=== PATIENT | female | born 1975 ===

== ENCOUNTER 2017-09-26 16:03 | Outpatient (CLI) | payer BC ==
--- NOTE | 2017-09-27 11:27 | Mammography Report ---
BILATERAL DIGITAL SCREENING MAMMOGRAM WITH CAD:09/26/17 CLINICAL: Baseline screening. No comparison. Status post bilateral reduction mammoplasty in 1999. FINDINGS: The breasts are mostly fatty with a few bilateral scatter fibroglandular densities. Left asymmetries on the MLO view require additional imaging.No architectural distortion or suspicious calcifications. The right breast is negative. IMPRESSION: Left asymmetries requiring further workup. BI-RADS CATEGORY: 0 -- Needs Additional Imaging RECOMMENDATION: Recall for left exaggerated CC and spot compression MLO views and left breast ultrasound if needed. ACR BI-RADS MAMMOGRAPHIC CODES: 0 = Needs additional imaging evaluation; 1 = Negative; 2 = Benign; 3 = Probably benign; 4 = Suspicious; 5 = Malignant; 6 = Known biopsy-proven malignancy COMMENT: 1. Dense breast tissue, i.e., adenosis, fibrocystic changes, etc., may obscure an underlying neoplasm. 2. Approximately 10% of cancers are not detected with mammography. 3. A negative mammography report should not delay biopsy if a clinically suspicious mass is present.
== END 2017-09-26 16:04 | disposition home or self-care (01) ==
LOC: SPVWC 16:03
PROVIDERS: ATTEND Obstetrics & Gynecology
DX: Z12.31 Encounter for screening mammogram for malignant neoplasm of breast (principal)
CPT/HCPCS: 77067

== ENCOUNTER 2017-10-06 10:15 | Outpatient (CLI) | payer BC ==
--- NOTE | 2017-10-06 14:34 | Ultrasound Report ---
LEFT DIGITAL DIAGNOSTIC MAMMOGRAM and LEFT BREAST ULTRASOUND: 10/06/17 10:15:00 CLINICAL: Recalled for asymmetry. COMPARISON:09/26/17 screening FINDINGS: Satisfactory effacement of asymmetries on a spot MLO view. However, an irregular asymmetry is identified on an exaggerated CC view and it persists with spot compression. Ultrasound of the outer left breast was performed and demonstrated an irregular island of echogenic stroma at 3 o'clock 8 cm from the nipple. It appears to correlate with the mammographic asymmetry on the exaggerated CC view and measures approximately 2.4 x 0.8 cm. IMPRESSION: A probably benign mammographic asymmetry with an ultrasound correlate which appears to be an island of benign echogenic stroma surrounded by fat. BI-RADS CATEGORY: 3 - - Probably Benign RECOMMENDATION: Six month followup left mammogram and left breast ultrasound if needed. ACR BI-RADS MAMMOGRAPHIC CODES: 0 = Needs additional imaging evaluation; 1 = Negative; 2 = Benign; 3 = Probably benign; 4 = Suspicious; 5 = Malignant; 6 = Known biopsy-proven malignancy COMMENT: 1. Dense breast tissue, i.e., adenosis, fibrocystic changes, etc., may obscure an underlying neoplasm. 2. Approximately 10% of cancers are not detected with mammography. 3. A negative mammography report should not delay biopsy if a clinically suspicious mass is present. COMMENT: Patient follow-up letters are generated via our [employer] application.
== END 2017-10-06 10:16 | disposition home or self-care (01) ==
LOC: SPVWC 10:15
PROVIDERS: ATTEND Obstetrics & Gynecology
DX: R92.2 Inconclusive mammogram (principal)